=== PATIENT | male | born 1990 | race Caucasian/White ===

== ENCOUNTER → 2017-10-14 | Emergency (ER) | payer OTHER ==
[~2017-10-14] VITALS: Ht 175.3 cm; Wt 59.0 kg
[~2017-10-14] MED LIST: DOLOGESIC-DF 51 EACH PO; ORASEP SPRAY30 ML MM
== END | disposition home or self-care (01) ==
LOC: ER 21:40
DX: J32.8 Other chronic sinusitis (principal)